=== PATIENT | male | born 1955 | race Caucasian/White ===

== ENCOUNTER 2024-04-29 13:08 | Outpatient (RCR) | payer MEDICARE, BC, SELFPAY | END 2024-05-24 23:59 | disposition home or self-care (01) | LOC: SCTC 13:08 | PROVIDERS: PCP Specialist; Referring Provider Specialist; Visit Provider Nurse Practitioner Family | DX: C61 Malignant neoplasm of prostate (principal); C79.51 Secondary malignant neoplasm of bone; Z90.79 Acquired absence of other genital organ(s); K64.9 Unspecified hemorrhoids; F03.90 Unspecified dementia, unspecified severity, without behavioral disturbance, psychotic disturbance, mood disturbance, and anxiety; Z79.818 Long term (current) use of other agents affecting estrogen receptors and estrogen levels | CPT/HCPCS: 99212; G0463 ==

== ENCOUNTER 2024-05-26 14:03 | Outpatient (RCR) | payer MEDICARE, BC, SELFPAY | END 2024-06-24 23:59 | disposition home or self-care (01) | LOC: SCTC 14:03 | PROVIDERS: PCP Specialist; Referring Provider Specialist; Visit Provider Nurse Practitioner Family | DX: Z51.11 Encounter for antineoplastic chemotherapy (principal); C61 Malignant neoplasm of prostate; C79.51 Secondary malignant neoplasm of bone; Z90.79 Acquired absence of other genital organ(s); F03.90 Unspecified dementia, unspecified severity, without behavioral disturbance, psychotic disturbance, mood disturbance, and anxiety; Z87.19 Personal history of other diseases of the digestive system | CPT/HCPCS: 96372; 96402; J0897; J9217 ==

== ENCOUNTER 2024-07-02 13:08 | Outpatient (RCR) | payer MEDICARE, BC, SELFPAY ==
--- NOTE | 2024-07-02 13:44 | CTCFLWUP_ITS ---
[facility] [address] [place], [place] [address] FOLLOW-UP NOTE Date: 07/02/2024 MR#: [id number] Name: MARISELA DUNCAN : 1955 Dx: C61 Malignant neoplasm of prostate Identification. 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 History of prostatectomy for localized prostate CA at [facility] 11/17/2012. XRT to prostate region 6840 cGy for rising PSA and bone mets T3 and sacral regions. 2020. On Lupron abiraterone and prednisone as well as Xgeva since 01/18/2021. Prior bone scan 01/03/2023 increased uptake T3 less prominent and sacral area of uptake. MRI pelvis 02/16/2024 nonhealing S1 osteoblastic focus S1 12 x 12 mm. Most recent lab 05/20/2024 PSA less than 0.1. As I see patient today patient has a usual pain in the lumbar sacral area alleviated with pain meds. 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 #2 prior XRT to prostate region and T3 sacral regions.. #3 still having significant pain in the lumbosacral region. #4. bone scan, last ordered 01/03/2023 showing only small areas of involvement. #5. Renewed pain medications hydrocodone 10 and gabapentin in the usual way Cures website checked. #6. Patient has follow-up with Dr. Humphrey next month. Electronically signed by: Benny Kothari M.D. 07/02/2024 1:41 PM
== END 2024-07-25 23:59 | disposition home or self-care (01) ==
LOC: SCTC 13:08
PROVIDERS: PCP Specialist; Referring Provider Radiology Therapeutic Radiology; Visit Provider Radiology Therapeutic Radiology
DX: C61 Malignant neoplasm of prostate (principal); C79.51 Secondary malignant neoplasm of bone; Z90.79 Acquired absence of other genital organ(s); Z92.3 Personal history of irradiation; G89.3 Neoplasm related pain (acute) (chronic); Z79.818 Long term (current) use of other agents affecting estrogen receptors and estrogen levels
CPT/HCPCS: 99213; G0463

== ENCOUNTER → 2024-07-25 | Outpatient (CLI) | payer MEDICARE, BC, SELFPAY ==
--- NOTE | 2024-07-25 | XR_ITS ---
Examination: Bone scan whole body, radioisotope Date and time of exam: July 25, 2024 at 1333 hours INDICATIONS: Diagnosis metastatic prostate cancer, prostatectomy October 2012 post radiation therapy, elevated PSA Technique: Study has been performed with intravenous administration of 25 mci 99M technetium MDP. Anterior, posterior whole body images are obtained. Images have been obtained including the lower extremities. Findings: Symmetrical isotope accumulation No findings diagnostic for osseous metastatic disease IMPRESSION: No findings diagnostic for osseous metastatic disease
== END | disposition home or self-care (01) ==
LOC: SNUC 08:24
PROVIDERS: PCP Specialist; Referring Provider Radiology Therapeutic Radiology; Visit Provider Radiology Therapeutic Radiology
DX: C61 Malignant neoplasm of prostate (principal); C79.51 Secondary malignant neoplasm of bone
CPT/HCPCS: 78306; A9503

== ENCOUNTER 2024-07-30 13:01 | Outpatient (RCR) | payer MEDICARE, BC, SELFPAY ==
--- NOTE | 2024-07-30 13:59 | CTCFLWUP_ITS ---
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 Angelo is here at [facility] clinic. Patient accompanied by . Patient is taking hydrocodone and gabapentin for pain, back pain is better. Patient walking with assistance of cane. Patient reports good energy levels and appetite. Denies any cough, chest pain, abdominal pain or leg cramps. Tolerating Lupron Abiraterone xgeva and prednisone well without any significant side effects. HISTORY: Marisela Angelo is a 69-year-old ENG speaking male who was recently diagnosed with metastatic prostate cancer is referred to the [facility] medical oncology department. 11/19/2012: Patient had robotic radical prostatectomy with extended bilateral pelvic lymph node dissection for localized prostate cancer. 09/13/2020: CT scan of the abdomen and pelvis with IV contrast? 09/22/2020: MRI of the pelvis with IV contrast? 11/02/2020: Bone scan? 01/28/2020: MRI of the thoracic spine with and without contrast? 03/03/2021?03/18/2021: Patient received 3000 cGy radiation to the T3 vertebral body. 03/03/2021?patient was also started on radiation therapy to the pelvis which he continues to receive. 03/03/2021 - 04/27/2021: Patient had radiation therapy to the T3 as well as pelvis. PSA trend: 10/11/2020: PSA 0.8. 01/07/2021: PSA 1.2. 02/11/2021: PSA 0.4. 02/24/2021: PSA 0.2 06/27/2021: PSA less than 0.1. 08/23/2022 - 09/05/2022: Patient had 3000 cGy radiation therapy to the sacrum. 11/06/2022: PSA less than 0.1. 01/03/2023: Bone scan? 01/25/2023: MRI of the pelvis with and without contrast 03/08/2023: PSA less than 0.1. 05/15/2023: PSA less than 0.1. 08/24/2023: Bone scan 10/15/2023: PSA less than 0.1 10/18/2023: MRI pelvis with contrast 01/22/2024: X-ray pelvis 02/13/2024: PSA<0.1, hemoglobin 13.0, MCV 105, WBC 5.1, ANC 3.8, platelets 214,000. OTHER MEDICAL HISTORY/CONDITIONS: FAMILY HISTORY: SOCIAL HISTORY: MEDICATIONS: 1. abiraterone - 250 mg 4 tab Daily 2. Calcium 600 + D(3) - 600 mg(1,500mg) -200 unit 1 tab Daily 3. Colace - 100 mg 1 Capsule Daily 4. gabapentin - 300 mg 1 - 2 Capsule three times a day 5. HYDROcodone-acetaminophen - 10-325 mg 1 tab q4 6. ibuprofen - 400 mg 1 tab one tablet every 8 hours as needed for pain 7. lisinopril - 10 mg Twice a Day 8. meloxicam - 15 mg 1 tab Every day before sleep 9. Miralax - 17 gram/dose 1 dose Every day before sleep 10. prednisone - 5 mg 1 tab Daily Medications Last Reconciled by Diamond Romano MD on 07/30/2024 ALLERGIES: No Known Drug Allergies; No Known Allergies REVIEW OF SYSTEMS: A complete 14-point review of systems was performed and is negative except as noted in interval history. PHYSICAL EXAMINATION: VITAL SIGNS: PAIN: 0 - No pain ECOG Performance Status: 0 - Asymptomatic and fully active GENERAL APPEARANCE: Appears well, in no apparent distress, appropriately interactive. HEENT: Normocephalic, no temporal wasting, normal conjunctiva, no scleral icterus, normal hearing, lips without lesions, neck normal range of motion. CARDIOVASCULAR: Not assessed. PULMONARY: Normal respiratory effort, no respiratory distress or use of accessory muscles, speaking in full sentences, no tachypnea. EXTREMITIES: No pedal edema or cyanosis. SKIN: Normal skin appearance. NEUROLOGIC: Alert and oriented x4. PSHYCHIATRIC: Appropriate affect, mood normal, behavior normal, intact thought and speech. LABORATORY DATA: I have personally reviewed and interpreted each of Mr. 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 History of robotic prostatectomy for localized prostate cancer on 11/17/2012. The PSA less than 0.1, (02/13/2024). Back pain and leg pain improving, taking gabapentin 300 mg, 1 -2 tablets, 3 times daily as needed and hydrocodone 10 every 4 hours as needed. Follow with Dr. Kothari MRI pelvis with contrast showed nonenhancing osteoblastic focus left S1 vertebral body, 12 x 12 mm, (02/16/2024). X-ray pelvis showed no fracture, sclerotic focus left sacrum, (01/22/2024). MRI, no soft tissue tumor in the pelvis noted, no findings diagnostic for osteoblastic metastatic disease, (10/18/2023). Bone scan, nonspecific areas of activity in the lower C-spine and upper T-spine mid spine, (08/24/2023). S/p radiation therapy to the T3 spine as well as to pelvis. Left hip pain improving, following up with Dr. Kothari. Continue Lupron, abiraterone, prednisone as well as Xgeva (01/18/2021?) CBC CMP PSA prior to next follow up. 07/25/2024 bone scan and negative for osteoblastic lesions PSA still less than 0.1 Continue therapy with Lupron abiraterone and prednisone and Xgeva Advised to take calcium and vitamin D3 daily #2 anemia likely from Lupron Will check nutritional causes of anemia and follow-up at the next visit CBC CMP folic acid B12 ferritin iron panel PSA RETURN TO CLINIC: I will see him back in the clinic in 3 months. BILLING AND COMPLIANCE: I reviewed external records from providers outside my specialty as summarized above. I spent a total of 50 minutes on this patient?s care on the day of their visit excluding time spent related to any billed procedures. This time includes time spent with the patient as well as time spent documenting in the medical record, reviewing patients records and tests, obtaining history, placing orders, communicating with other healthcare professionals, counseling the patient, family or caregiver, and/or care coordination for the diagnoses above. Electronically Signed by: Herberth Humphrey MD T: 1:56 PM CC: Karolyn?REI Reese PCP: Karolyn Reese Referring: Karolyn Reese This document was completed utilizing speech recognition software. Grammatical errors, random word insertions, pronoun errors, and incomplete sentences are an occasional consequence of this system due to software limitations, ambient noise, and hardware issues. Any formal questions or concerns about the content, text or information contained within the body of this dictation should be directly addressed to the provider for clarification.
== END 2024-08-22 23:59 | disposition home or self-care (01) ==
LOC: SCTC 13:01
PROVIDERS: PCP Specialist; Referring Provider Specialist; Visit Provider Internal Medicine Hematology & Oncology
DX: C61 Malignant neoplasm of prostate (principal); C79.51 Secondary malignant neoplasm of bone; Z90.79 Acquired absence of other genital organ(s); Z92.3 Personal history of irradiation; Z79.818 Long term (current) use of other agents affecting estrogen receptors and estrogen levels; D64.9 Anemia, unspecified; M54.9 Dorsalgia, unspecified; M79.606 Pain in leg, unspecified
CPT/HCPCS: 99212; G0463

== ENCOUNTER 2024-08-25 14:32 | Outpatient (RCR) | payer MEDICARE, BC, SELFPAY | END 2024-09-22 23:59 | disposition home or self-care (01) | LOC: SCTC 14:32 | PROVIDERS: PCP Specialist; Referring Provider Specialist; Visit Provider Radiology Therapeutic Radiology | DX: Z51.11 Encounter for antineoplastic chemotherapy (principal); C61 Malignant neoplasm of prostate; C79.51 Secondary malignant neoplasm of bone; Z90.79 Acquired absence of other genital organ(s); Z92.3 Personal history of irradiation; Z79.818 Long term (current) use of other agents affecting estrogen receptors and estrogen levels | CPT/HCPCS: 96372; 96402; J0897; J9217 ==

== ENCOUNTER 2024-10-22 13:08 | Outpatient (RCR) | payer MEDICARE, BC, SELFPAY ==
--- NOTE | 2024-10-01 13:46 | CTCFLWUP_ITS ---
[facility] [address] [place], [place] [address] FOLLOW-UP NOTE Date: 10/01/2024 MR#: [id number] Name: MARISELA DUNCAN : 1955 Dx: C61 Malignant neoplasm of prostate Identification. Stage [address] [facility] 11/17/12 Postop XRT for rising PSA completed tp pelvis and subsequent bone mets T3 and sacral region 2020 On Lupron abiraterone prednisone Xgeva Most recent PSA 08/22/24 <0.1 AST 43 OT 20 Bone Scan 07/25/24 negative for mets. Being followed by Dr Humphrey with Lupron abiraerone prednisone Xgeva. Taking gabapentin 300 mg tid hydrodocone 10 qid prn for continued pelvic pain. Reeval 3 mos Electronically signed by: Benny Kothari M.D. 10/01/2024 1:43 PM
--- NOTE | 2024-10-28 11:37 | CTCFLWUP_ITS ---
Patient: MARISELA ANGELO : 1955 Page 2 of 2 FOLLOW UP NOTE DATE OF SERVICE: 10/22/2024 NAME: MARISELA ANGELO ACCOUNT: [id number] : 1955 AGE: 69 INTERVAL HISTORY: Petey Mcleod, a male with stage 4 prostate cancer, presented with shoulder pain and confusion about PSMA scan. History includes prostate surgery (2012) and radiation (2020). Chief Complaint Shoulder pain, confusion about PSMA scan History of Present Illness Petey Mcleod is a patient with stage 4 prostate cancer, status post surgery in 2012 and radiation therapy in 2020, presenting with shoulder pain. The patient's prostate-specific antigen (PSA) level was recently reported as less than 0.1 on August 22, 2024. Mr. Mcleod is experiencing shoulder pain of unspecified duration and severity. A bone scan performed on July 25, 2024, was negative for osseous metastatic disease. The patient reports confusion about the recommended PSMA scan and expresses a preference for marijuana over [place] for pain management due to side effects. He is currently taking gabapentin 300 mg three times daily for pain control, though the effectiveness of this regimen is unclear. The patient's current treatment regimen includes Lupron (leuprolide depot), abiraterone, prednisone, and Xgeva. He also takes Centrum Silver as a supplement. Recent blood work revealed mild anemia with a drop in hemoglobin and high MCV. Notably, the patient's B12 levels are very low, which may be contr ibuting to nerve pain. Mr. Mcleod reports issues with forgetfulness, which may impact his ability to manage his medications and follow-up appointments effectively. He has been advised to keep a diary to help track important information. Medical History - Stage 4 prostate cancer - Mild anemia - Chronic B12 deficiency Surgical History - Surgery for prostate cancer at [facility] on 11/17/2012 - Post-operative XRT (radiation therapy) to pelvis and bone mass in T3 and sacral region in 2020 Medications and Supplements - Lupron (leuprolide for depot) - Abiraterone - Prednisone - Xgeva - For bone health - Gabapentin 300 mg by mouth 3 times a day - For pain management - Centrum Silver - Vitamin D - B12 (sublingual) - For low B12 levels Social History - Substance Use: Prefers marijuana over [place] due to side effects - Diet and Nutrition: Takes Centrum Silver supplement Review of Systems Musculoskeletal: Positive for shoulder pain. Neurological: Positive for forgetfulness. 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 Angelo is here at [facility] clinic. Patient accompanied by . Patient is taking hydrocodone and gabapentin for pain, back pain is better. Patient walking with assistance of cane. Patient reports good energy levels and appetite. Denies any cough, chest pain, abdominal pain or leg cramps. Tolerating Lupron Abiraterone xgeva and prednisone well without any significant side effects. HISTORY: Marisela Angelo is a 69-year-old ENG speaking male who was recently diagnosed with metastatic prostate cancer is referred to the [facility] medical oncology department. 11/19/2012: Patient had robotic radical prostatectomy with extended bilateral pelvic lymph node dissection for localized prostate cancer. 09/13/2020: CT scan of the abdomen and pelvis with IV contrast? 09/22/2020: MRI of the pelvis with IV contrast? 11/02/2020: Bone scan? 01/28/2020: MRI of the thoracic spine with and without contrast? 03/03/2021?03/18/2021: Patient received 3000 cGy radiation to the T3 vertebral body. 03/03/2021?patient was also started on radiation therapy to the pelvis which he continues to receive. 03/03/2021 - 04/27/2021: Patient had radiation therapy to the T3 as well as pelvis. PSA trend: 10/11/2020: PSA 0.8. 01/07/2021: PSA 1.2. 02/11/2021: PSA 0.4. 02/24/2021: PSA 0.2 06/27/2021: PSA less than 0.1. 08/23/2022 - 09/05/2022: Patient had 3000 cGy radiation therapy to the sacrum. 11/06/2022: PSA less than 0.1. 01/03/2023: Bone scan? 01/25/2023: MRI of the pelvis with and without contrast 03/08/2023: PSA less than 0.1. 05/15/2023: PSA less than 0.1. 08/24/2023: Bone scan 10/15/2023: PSA less than 0.1 10/18/2023: MRI pelvis with contrast 01/22/2024: X-ray pelvis 02/13/2024: PSA<0.1, hemoglobin 13.0, MCV 105, WBC 5.1, ANC 3.8, platelets 214,000. OTHER MEDICAL HISTORY/CONDITIONS: FAMILY HISTORY: SOCIAL HISTORY: MEDICATIONS: 1. abiraterone - 250 mg 4 tab Daily 2. Calcium 600 + D(3) - 600 mg(1,500mg) -200 unit 1 tab Daily 3. Colace - 100 mg 1 Capsule Daily 4. gabapentin - 300 mg 1 - 2 Capsule three times a day 5. HYDROcodone-acetaminophen - 10-325 mg 1 tab q4 6. ibuprofen - 400 mg 1 tab one tablet every 8 hours as needed for pain 7. lisinopril - 10 mg Twice a Day 8. meloxicam - 15 mg 1 tab Every day before sleep 9. Miralax - 17 gram/dose 1 dose Every day before sleep 10. prednisone - 5 mg 1 tab Daily Medications Last Reconciled by Delma Gaffney MA on 10/22/2024 ALLERGIES: No Known Drug Allergies; No Known Allergies REVIEW OF SYSTEMS: A complete 14-point review of systems was performed and is negative except as noted in interval history. PHYSICAL EXAMINATION: VITAL SIGNS: Temperature?98, B/P?151/94, Oxygen?Saturation?98% Weight?155?lbs (Change?since?10/01/24:?-10?lbs) PAIN: 6 - Severe pain ECOG Performance Status: 0 - Asymptomatic and fully active GENERAL APPEARANCE: Appears well, in no apparent distress, appropriately interactive. HEENT: Normocephalic, no temporal wasting, normal conjunctiva, no scleral icterus, normal hearing, lips without lesions, neck normal range of motion. CARDIOVASCULAR: Not assessed. PULMONARY: Normal respiratory effort, no respiratory distress or use of accessory muscles, speaking in full sentences, no tachypnea. EXTREMITIES: No pedal edema or cyanosis. SKIN: Normal skin appearance. NEUROLOGIC: Alert and oriented x4. PSHYCHIATRIC: Appropriate affect, mood normal, behavior normal, intact thought and speech. 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 History of robotic prostatectomy for localized prostate cancer on 11/17/2012. The PSA less than 0.1, (02/13/2024). Back pain and leg pain improving, taking gabapentin 300 mg, 1 -2 tablets, 3 times daily as needed and hydrocodone 10 every 4 hours as needed. Follow with Dr. Kothari MRI pelvis with contrast showed nonenhancing osteoblastic focus left S1 vertebral body, 12 x 12 mm, (02/16/2024). X-ray pelvis showed no fracture, sclerotic focus left sacrum, (01/22/2024). MRI, no soft tissue tumor in the pelvis noted, no findings diagnostic for osteoblastic metastatic disease, (10/18/2023). Bone scan, nonspecific areas of activity in the lower C-spine and upper T-spine mid spine, (08/24/2023). S/p radiation therapy to the T3 spine as well as to pelvis. Left hip pain improving, following up with Dr. Kothari. Continue Lupron, abiraterone, prednisone as well as Xgeva (01/18/2021?) CBC CMP PSA prior to next follow up. 07/25/2024 bone scan and negative for osteoblastic lesions PSA still less than 0.1 Continue therapy with Lupron abiraterone and prednisone and Xgeva Advised to take calcium and vitamin D3 daily #2 anemia likely from Lupron Will check nutritional causes of anemia and follow-up at the next visit Petey Mcleod, male patient with stage 4 prostate cancer, status post surgery in 2012 and radiation therapy in 2020, presenting with shoulder pain and concerns about potential metastasis. Stage 4 Prostate Cancer Assessment: Patient has a history of stage 4 prostate cancer, status post surgery at [facility] on 11/17/2012 and post-operative XRT for rising PSA completed to pelvis and subsequent bone mass T3 and sacral region in 2020. Currently on Lupron (leuprolide depot), abiraterone, prednisone, and Xgeva. Re cent PSA on 08/22 is less than 0.1, indicating good response to current treatment. Bone scan on 07/25/2024 showed no findings diagnostic for osseous metastatic disease. MRI on 02/16/2024 revealed a non-enhancing osteoblastic focus in the left S1 vertebrae measuring 12 by 12 millimeters. Given the undetectable PSA and negative bone scan, it is unlikely that the current shoulder pain is related to prostate cancer metastasis. However, further investigation is warranted to rule out metastatic disease definitively. Plan: - Order PSMA scan at [facility] to evaluate for potential prostate cancer metastasis - Review MRI results once completed - Continue current medications: - Lupron (leuprolide depot) - Abiraterone - Prednisone - Xgeva - Obtain prednisone prescription from [facility] - Follow up in 3 months or 4 weeks after MRI review, whichever comes first Shoulder Pain Assessment: Patient is experiencing shoulder pain of unclear etiology. Bone scan was negative for metastatic disease. The pain persists despite undetectable PSA levels. Differential diagnoses include arthritis or other [id number] causes. Further investigation is necessary to determine the cause and appropriate treatment. Plan: - Order MRI of the cervical spine - Initiate pain management with Gabapentin 300 mg PO TID - Educate patient on consistent intake of Gabapentin for effectiveness - Discuss alternative pain management options, including patient's preference for marijuana over [place] due to side effects B12 Deficiency Assessment: Recent blood work reveals mild anemia with dropped hemoglobin and high MCV. B12 levels are very low, which may be contributing to nerve pain. The patient's chronic B12 deficiency is likely causing abnormal cell morphology. There is concern about potential malabsorption issues, which may be affecting other nutrients as well. Plan: - Initiate monthly B12 injections to be administered by nurses in the clinic - Prescribe daily sublingual B12 supplementation - Order vitamin D level test - Recommend continuation of Centrum Silver multivitamin - Educate patient on keeping a diary to help with forgetfulness BILLING AND COMPLIANCE: I reviewed external records from providers outside my specialty as summarized above. I spent a total of 50 minutes on this patient?s care on the day of their visit excluding time spent related to any billed procedures. This time includes time spent with the patient as well as time spent documenting in the medical record, reviewing patients records and tests, obtaining history, placing orders, communicating with other healthcare professionals, counseling the patient, family or caregiver, and/or care coordination for the diagnoses above. Electronically Signed by: Herberth Humphrey MD T: 11:34 AM CC: Karolyn?Hugh,? PCP: Jose Armando Taylor Referring: Jose Armando Taylor This document was completed utilizing speech recognition software. Grammatical errors, random word insertions, pronoun errors, and incomplete sentences are an occasional consequence of this system due to software limitations, ambient noise, and hardware issues. Any formal questions or concerns about the content, text or information contained within the body of this dictation should be directly addressed to the provider for clarification.
== END 2024-10-22 23:59 | disposition home or self-care (01) ==
LOC: SCTC 13:08
PROVIDERS: PCP Family Medicine; Referring Provider Family Medicine; Visit Provider Internal Medicine Hematology & Oncology
DX: C61 Malignant neoplasm of prostate (principal); C79.51 Secondary malignant neoplasm of bone; Z92.3 Personal history of irradiation; M25.519 Pain in unspecified shoulder; Z90.79 Acquired absence of other genital organ(s); Z79.818 Long term (current) use of other agents affecting estrogen receptors and estrogen levels; D64.9 Anemia, unspecified; E53.8 Deficiency of other specified B group vitamins
CPT/HCPCS: 99212; G0463

== ENCOUNTER → 2024-11-13 | Outpatient (CLI) | payer MEDICARE, BC, SELFPAY ==
--- NOTE | 2024-11-13 15:45 | XR_ITS ---
Examination: MRI cervical spine, without intravenous contrast. MRI cervical spine , with intravenous contrast. Exam date and time: November 13, 2024 1612 hours, comparison nuclear medicine bone scan July 25, 2024 INDICATIONS: Diagnosis malignant neoplasm of prostate secondary malignant neoplasm of the bone, cervical pain 3 months increasing in severity, pain radiating to left arm numbness and paresthesias in the left arm Technique: Multiple axial, sagittal and coronal images of the cervical spine have been obtained with the Siemens high-resolution 1.5 [place] MRI scanner. Images obtained included T2 weighted fat suppressed sagittal sections, TR 3500, TE 46, T2 weighted coronal fat suppressed images, TR 3050, TE 84, T2-weighted transverse fat suppressed images, TR 30-60, TE 63, proton density transverse images, TR 4720, TE 46, and T1 weighted coronal images, TR 560, TE 13. Axial, sagittal and coronal images are obtained post intravenous injection of 15 cc gadolinium. Findings: No cervical vertebral body fracture Probable hemangiomatous change T1, T2 Normal marrow signal in the cervical vertebral bodies Diffuse cervical disc desiccation No cervical fracture Moderate disc narrowing C4-C5, C5-C6 No localized enlargement cervical cord C2-C3 mild right neural foraminal stenosis C3-C4 uncinate process hypertrophy, 2 mm central osteophyte disc complex, advanced right and moderate left neural foraminal stenosis C4-C5 bilateral uncinate process hypertrophy, 4 mm central subarticular osteophyte disc complex, indenting the ventral margin cervical cord, advanced bilateral neural foraminal stenosis C5-C6 uncinate process hypertrophy and moderate bilateral neural foraminal stenosis C6-C7 2 mm left paracentral osteophyte disc complex, moderate left neural foraminal stenosis C7-T1 moderate left neural foraminal stenosis Postcontrast images demonstrate no abnormal enhancement no findings diagnostic for osseous metastatic disease IMPRESSION: No findings diagnostic for osseous metastatic disease C3-C4 advanced right and moderate left neural foraminal stenosis C4-C5 advanced bilateral neural foraminal stenosis with 4 mm central subarticular osteophyte disc complex indenting the ventral margin cervical cord C5-C6 moderate bilateral neural foraminal stenosis C6-C7, C7-T1 moderate left neural foraminal stenosis
== END | disposition home or self-care (01) ==
LOC: SMRI 15:33
PROVIDERS: PCP Specialist; Referring Provider Internal Medicine Hematology & Oncology; Visit Provider Internal Medicine Hematology & Oncology
DX: M48.02 Spinal stenosis, cervical region (principal); M48.03 Spinal stenosis, cervicothoracic region; M25.78 Osteophyte, vertebrae; C79.51 Secondary malignant neoplasm of bone; C61 Malignant neoplasm of prostate
CPT/HCPCS: 72156; A9579

== ENCOUNTER 2024-11-25 14:09 | Outpatient (RCR) | payer MEDICARE, BC, SELFPAY | END 2024-12-22 23:59 | disposition home or self-care (01) | LOC: SCTC 14:09 | PROVIDERS: PCP Specialist; Referring Provider Specialist; Visit Provider Internal Medicine Hematology & Oncology | DX: Z51.11 Encounter for antineoplastic chemotherapy (principal); C61 Malignant neoplasm of prostate; C79.51 Secondary malignant neoplasm of bone; Z90.79 Acquired absence of other genital organ(s); Z92.3 Personal history of irradiation; E53.8 Deficiency of other specified B group vitamins; D64.9 Anemia, unspecified; M25.519 Pain in unspecified shoulder | CPT/HCPCS: 96372; 96402; J0897; J3420; J9217 ==

== ENCOUNTER 2024-12-31 13:07 | Outpatient (RCR) | payer MEDICARE, BC, SELFPAY ==
--- NOTE | 2024-12-24 14:03 | CTCFLWUP_ITS ---
Patient: MARISELA ANGELO : 1955 Page 2 of 2 FOLLOW UP NOTE DATE OF SERVICE: 12/24/2024 NAME: MARISELA ANGELO ACCOUNT: [id number] : 1955 AGE: 69 INTERVAL HISTORY: An elderly male presented for prostate cancer follow-up, reporting backache, shoulder pain, and fatigue. His history includes prostate cancer treated with Lupron, Zytiga, and Xgeva. Recent PSA was negative, and MRI showed normal findings with age-related spinal narrowing causing backache. Shoulder pain was attributed to arthritis. The patient recently started B12 injections for fatigue. Treatment plan includes continuing current medications, checking PSA quarterly, awaiting PSMA scan results from [place], and assistance with an [employer] program for cancer patients. Next follow-up scheduled after receiving scan results. Subjective: Chief Complaint Follow-up for prostate cancer treatment, backache, shoulder pain, fatigue History of Present Illness The patient is an older male with a history of prostate cancer, currently undergoing treatment with Lupron (leuprolide for depot) and Zytiga. He presents for follow-up of his cancer treatment and management of various symptoms. The patient reports ongoing backache, which has been attributed to spinal narrowing, a normal age-related change. He also experiences shoulder pain, which has been diagnosed as arthritis rather than cancer-related. The patient has recently started B12 injections, with the next injection scheduled for tomorrow. He is unsure if these injections have improved his symptoms, but they are intended to increase energy and reduce fatigue. The patient's ability to work has been significantly impacted since the onset of COVID-19 and the recurrence of his cancer. 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 His continues to work, providing some financial support. The patient's daily functioning and quality of life appear to be affected by his health conditions and treatment regimen. Adherence to the prescribed treatment plan seems to be good, with the patient receiving regular injections of Lupron and Xgeva. He is also taking Zytiga as part of his cancer treatment regimen. The patient mentions that his pain may have improved due to Oxtendi and Xgeva, suggesting some positive response to the current treatment plan. Medications and Supplements - B12 injections - Recently started. First injection scheduled for tomorrow. - Expected to provide more energy and reduce fatigue. - Lupron (leuprolide for depot) - Main drug for treatment. - Zytiga - Adds 10-15% effectiveness to treatment. - Expensive, but covered by Medicare and supplement so far. - Xgeva - Expensive drug. - Oxtendi - May have contributed to pain improvement. Review of Systems General: Positive for fatigue. Musculoskeletal: Positive for backache, shoulder pain. Objective: Laboratory, Imaging, and Diagnostic Test Results - Date: December 12, 2024 - Labs: Available (specific results not mentioned) - MRI (date not specified): Normal, no evidence of cancer - Prostate-specific enzyme: Negative - PSA: Negative (specific date not mentioned) The patient's current treatment regimen includes Lupron (leuprolide depot), abiraterone, prednisone, and Xgeva. He also takes Centrum Silver as a supplement. Recent blood work revealed mild anemia with a drop in hemoglobin and high MCV. Notably, the patient's B12 levels are very low, which may be contr ibuting to nerve pain. Mr. Mcleod reports issues with forgetfulness, which may impact his ability to manage his medications and follow-up appointments effectively. He has been advised to keep a diary to help track important information. Medical History - Stage 4 prostate cancer - Mild anemia - Chronic B12 deficiency Surgical History - Surgery for prostate cancer at [facility] on 11/17/2012 - Post-operative XRT (radiation therapy) to pelvis and bone mass in T3 and sacral region in 2020 Medications and Supplements - Lupron (leuprolide for depot) - Abiraterone - Prednisone - Xgeva - For bone health - Gabapentin 300 mg by mouth 3 times a day - For pain management - Centrum Silver - Vitamin D - B12 (sublingual) - For low B12 levels Social History - Substance Use: Prefers marijuana over [place] due to side effects - Diet and Nutrition: Takes Centrum Silver supplement Review of Systems Musculoskeletal: Positive for shoulder pain. Neurological: Positive for forgetfulness. 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 Angelo is here at [facility] clinic. Patient accompanied by . Patient is taking hydrocodone and gabapentin for pain, back pain is better. Patient walking with assistance of cane. Patient reports good energy levels and appetite. Denies any cough, chest pain, abdominal pain or leg cramps. Tolerating Lupron Abiraterone xgeva and prednisone well without any significant side effects. HISTORY: Marisela Angelo is a 69-year-old ENG speaking male who was recently diagnosed with metastatic prostate cancer is referred to the [facility] medical oncology department. 11/19/2012: Patient had robotic radical prostatectomy with extended bilateral pelvic lymph node dissection for localized prostate cancer. 09/13/2020: CT scan of the abdomen and pelvis with IV contrast? 09/22/2020: MRI of the pelvis with IV contrast? 11/02/2020: Bone scan? 01/28/2020: MRI of the thoracic spine with and without contrast? 03/03/2021?03/18/2021: Patient received 3000 cGy radiation to the T3 vertebral body. 03/03/2021?patient was also started on radiation therapy to the pelvis which he continues to receive. 03/03/2021 - 04/27/2021: Patient had radiation therapy to the T3 as well as pelvis. PSA trend: 10/11/2020: PSA 0.8. 01/07/2021: PSA 1.2. 02/11/2021: PSA 0.4. 02/24/2021: PSA 0.2 06/27/2021: PSA less than 0.1. 08/23/2022 - 09/05/2022: Patient had 3000 cGy radiation therapy to the sacrum. 11/06/2022: PSA less than 0.1. 01/03/2023: Bone scan? 01/25/2023: MRI of the pelvis with and without contrast 03/08/2023: PSA less than 0.1. 05/15/2023: PSA less than 0.1. 08/24/2023: Bone scan 10/15/2023: PSA less than 0.1 10/18/2023: MRI pelvis with contrast 01/22/2024: X-ray pelvis 02/13/2024: PSA<0.1, hemoglobin 13.0, MCV 105, WBC 5.1, ANC 3.8, platelets 214,000. OTHER MEDICAL HISTORY/CONDITIONS: FAMILY HISTORY: SOCIAL HISTORY: MEDICATIONS: 1. abiraterone - 250 mg 4 tab Daily 2. Calcium 600 + D(3) - 600 mg(1,500mg) -200 unit 1 tab Daily 3. Colace - 100 mg 1 Capsule Daily 4. gabapentin - 300 mg 1 - 2 Capsule three times a day 5. HYDROcodone-acetaminophen - 10-325 mg 1 tab q4 6. ibuprofen - 400 mg 1 tab EVERY 8 HRS PRN PAIN 7. lisinopril - 10 mg Twice a Day 8. meloxicam - 15 mg 1 tab Every day before sleep 9. Miralax - 17 gram/dose 1 dose Every day before sleep 10. prednisone - 5 mg 1 tab Daily Medications Last Reconciled by Vicki Dang MA on 12/24/2024 ALLERGIES: No Known Drug Allergies; No Known Allergies REVIEW OF SYSTEMS: A complete 14-point review of systems was performed and is negative except as noted in interval history. PHYSICAL EXAMINATION: VITAL SIGNS: GENERAL APPEARANCE: Appears well, in no apparent distress, appropriately interactive. HEENT: Normocephalic, no temporal wasting, normal conjunctiva, no scleral icterus, normal hearing, lips without lesions, neck normal range of motion. CARDIOVASCULAR: Not assessed. PULMONARY: Normal respiratory effort, no respiratory distress or use of accessory muscles, speaking in full sentences, no tachypnea. EXTREMITIES: No pedal edema or cyanosis. SKIN: Normal skin appearance. NEUROLOGIC: Alert and oriented x4. PSHYCHIATRIC: Appropriate affect, mood normal, behavior normal, intact thought and speech. 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 History of robotic prostatectomy for localized prostate cancer on 11/17/2012. X-ray pelvis showed no fracture, sclerotic focus left sacrum, (01/22/2024). S/p radiation therapy to the T3 spine as well as to pelvis. Left hip pain improving, following up with Dr. Kothari. Patient is undergoing treatment for prostate cancer. Current therapy includes Lupron (leuprolide depot) as the main drug, with Zytiga adding 10-15% effectiveness. PSA (prostate-specific antigen) came back negative. Awaiting PSMA scan report from [place] for further evaluation of cancer status in the body. Labs from December 12 are available and reviewed. Plan: - Continue Lupron (leuprolide depot) injections - Continue Zytiga - Continue Xgeva injections - Check PSA every three months - Await PSMA scan report from [place] for further discussion - Next lab work scheduled for February (coinciding with next two shots) - Follow up after receiving PSMA scan report Fatigue Assessment: Patient reports fatigue. B12 injections have been initiated to address this symptom and potentially improve energy levels. Plan: - Continue B12 injections as scheduled (next injection tomorrow) - Monitor for improvement in energy levels and reduction in fatigue Backache Assessment: Patient reports backache. MRI shows spinal narrowing, which is considered normal for the patient's age and is likely contributing to the back pain. No evidence of cancer involvement in the spine. Plan: - Reassure patient about normal age-related spinal changes - Continue current management (specific interventions not mentioned in transcript) Shoulder Pain Assessment: Patient reports shoulder pain. The pain is attributed to arthritis rather than cancer involvement. Plan: - Continue current management for arthritis-related shoulder pain (specific interventions not mentioned in transcript) Financial Concerns Assessment: Patient expresses concerns about medication costs and inability to work since COVID and cancer recurrence. 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 Currently receiving expensive medications (Lupron, Xgeva, Zytiga) covered by Medicare and supplement insurance. Plan: - Assist patient with application for electric bill program for cancer patients - Continue to monitor insurance coverage for expensive medications - Avoid unnecessary labs to prevent high costs #2 anemia macrocytic Patient also have very low level of B12 B12 Deficiency Assessment: Recent blood work reveals mild anemia with dropped hemoglobin and high MCV. B12 levels are very low, which may be contributing to nerve pain. The patient's chronic B12 deficiency is likely causing abnormal cell morphology. There is concern about potential malabsorption issues, which may be affecting other nutrients as well. Plan: - Initiate monthly B12 injections to be administered by nurses in the clinic - Prescribe daily sublingual B12 supplementation - Order vitamin D level test - Recommend continuation of Centrum Silver multivitamin - Educate patient on keeping a diary to help with forgetfulness ORDERS: Order # Description [id number] Comprehensive Metabolic Panel - 12 + CBC with Auto Diff + PSA RETURN TO CLINIC: I reviewed the diagnosis, prognosis, and recommended treatment/procedure options with the patient (and/or their legal manufacturers representative), including the potential benefits, risks, side effects and alternative therapies. We also discussed the option of no treatment and the possibility of clinical trial participation, if applicable. All questions were addressed, and they demonstrated understanding. They provided informed consent to proceed with the proposed plan of care. BILLING AND COMPLIANCE: I reviewed external records from providers outside my specialty as summarized above. I spent a total of 50 minutes on this patient?s care on the day of their visit excluding time spent related to any billed procedures. This time includes time spent with the patient as well as time spent documenting in the medical record, reviewing patients records and tests, obtaining history, placing orders, communicating with other healthcare professionals, counseling the patient, family or caregiver, and/or care coordination for the diagnoses above. Electronically Signed by: Herberth Humphrey MD T: 2:00 PM CC: Karolyn?REI Reese PCP: Karolyn Reese Referring: Karolyn Reese This document was completed utilizing speech recognition software. Grammatical errors, random word insertions, pronoun errors, and incomplete sentences are an occasional consequence of this system due to software limitations, ambient noise, and hardware issues. Any formal questions or concerns about the content, text or information contained within the body of this dictation should be directly addressed to the provider for clarification.
== END 2025-01-22 23:59 | disposition home or self-care (01) ==
LOC: SCTC 13:07
PROVIDERS: PCP Specialist; Referring Provider Specialist; Visit Provider Internal Medicine Hematology & Oncology
DX: C61 Malignant neoplasm of prostate (principal); C79.51 Secondary malignant neoplasm of bone; M48.00 Spinal stenosis, site unspecified; M19.019 Primary osteoarthritis, unspecified shoulder; Z90.79 Acquired absence of other genital organ(s); Z92.3 Personal history of irradiation; Z79.818 Long term (current) use of other agents affecting estrogen receptors and estrogen levels; E53.8 Deficiency of other specified B group vitamins; D64.9 Anemia, unspecified; Z56.0 Unemployment, unspecified; K59.09 Other constipation
CPT/HCPCS: 96372; 99212; 99213; J3420; G0463

== ENCOUNTER 2025-01-29 13:48 | Outpatient (RCR) | payer MEDICARE, BC, SELFPAY | END 2025-02-22 23:59 | disposition home or self-care (01) | LOC: SCTC 13:48 | PROVIDERS: PCP Specialist; Referring Provider Specialist; Visit Provider Internal Medicine Hematology & Oncology | DX: E53.8 Deficiency of other specified B group vitamins (principal) | CPT/HCPCS: 96372; J3420 ==

== ENCOUNTER 2025-02-25 13:05 | Outpatient (RCR) | payer MEDICARE, BC, SELFPAY | END 2025-03-24 23:59 | disposition home or self-care (01) | LOC: SCTC 13:05 | PROVIDERS: PCP Specialist; Referring Provider Specialist; Visit Provider Internal Medicine Hematology & Oncology | DX: Z51.11 Encounter for antineoplastic chemotherapy (principal); C61 Malignant neoplasm of prostate; C79.51 Secondary malignant neoplasm of bone; Z92.3 Personal history of irradiation; K59.09 Other constipation; E53.8 Deficiency of other specified B group vitamins | CPT/HCPCS: 96372; 96402; J0897; J3420; J9217 ==

== ENCOUNTER 2025-04-08 14:01 | Outpatient (RCR) | payer MEDICARE, BC, SELFPAY | END 2025-04-24 23:59 | disposition home or self-care (01) | LOC: SCTC 14:01 | PROVIDERS: PCP Specialist; Referring Provider Specialist; Visit Provider Radiology Therapeutic Radiology | DX: C61 Malignant neoplasm of prostate (principal); C79.51 Secondary malignant neoplasm of bone; M48.00 Spinal stenosis, site unspecified; M19.019 Primary osteoarthritis, unspecified shoulder; E53.8 Deficiency of other specified B group vitamins; D64.9 Anemia, unspecified; Z79.818 Long term (current) use of other agents affecting estrogen receptors and estrogen levels; Z92.3 Personal history of irradiation | CPT/HCPCS: 96372; 99212; 99213; J3420; G0463 ==

== ENCOUNTER 2025-04-27 14:02 | Outpatient (RCR) | payer MEDICARE, BC, SELFPAY | END 2025-05-24 23:59 | disposition home or self-care (01) | LOC: SCTC 14:02 | PROVIDERS: PCP Specialist; Referring Provider Specialist; Visit Provider Radiology Therapeutic Radiology | DX: E53.8 Deficiency of other specified B group vitamins (principal); C61 Malignant neoplasm of prostate; C79.51 Secondary malignant neoplasm of bone; Z90.79 Acquired absence of other genital organ(s); M54.9 Dorsalgia, unspecified; M19.019 Primary osteoarthritis, unspecified shoulder; D64.9 Anemia, unspecified | CPT/HCPCS: 96372; J3420 ==

== ENCOUNTER 2025-06-04 14:04 | Outpatient (RCR) | payer MEDICARE, BC, SELFPAY | END 2025-06-24 23:59 | disposition home or self-care (01) | LOC: SCTC 14:04 | PROVIDERS: PCP Specialist; Referring Provider Specialist; Visit Provider Radiology Therapeutic Radiology | DX: Z51.11 Encounter for antineoplastic chemotherapy (principal); C61 Malignant neoplasm of prostate; C79.51 Secondary malignant neoplasm of bone; Z92.3 Personal history of irradiation | CPT/HCPCS: 96372; 96402; J0897; J3420; J9217 ==